=== PATIENT | female | born 1960 | race Caucasian/White ===

== ENCOUNTER 2018-03-13 13:33 | Emergency (ER) | payer SELFPAY ==
[~2018-03-13] VITALS: Ht 162.6 cm; Wt 100.0 kg
[2018-03-13] MEDS ORDERED: MOTRIN400 MG PO (14:33)
[2018-03-13] MEDS ORDERED: ASPERCREME LIDOCA41 TOP (14:33)
[2018-03-13 15:45] LABS: HEMATOCRIT 44.1 % (37.0-47.0); HEMOGLOBIN 14.5 g/dl (12.0-16.0); IMMATURE GRANULOCYTES 0.3 % (0.0-1.0); MEAN CELL VOLUME 93.2 fL CALC (80.0-100.0); MEAN CORPUSCULAR HGB 30.7 pG CALC (26.0-32.0); MEAN CORPUSCULAR HGB CONC 32.9 g/L CALC (32.0-36.0); NEUT# 6.27 thou/uL (2.00-7.15); RED BLOOD COUNT 4.73 mill/uL (4.20-5.60); RED CELL DISTRI WIDTH 13.8 % (11.5-15.5)
[2018-03-13 15:52] LABS: ANION GAP 16 (6-22 (CALC)); BUN 16 mg/dL (7-17); BUN/CREATININE RATIO 32 (12-20 (CALC)); CARBON DIOXIDE 25 mmol/l (22-30); CHLORIDE 106 mmol/l (95-108); CREATININE 0.5 mg/dL (0.5-1.0); GFR > 60 ML/MIN (>=60 (CALC)); GFR FOR AFR.AMER. > 60 ML/MIN (>=60 (CALC)); POTASSIUM 4.1 mmol/l (3.5-5.1); SODIUM 143 mmol/l (137-146)
[2018-03-13] MEDS ORDERED: ZESTRIL5 M1 PO (17:18)
[2018-03-13 17:32] VITALS: BP 151/70
== END 2018-03-13 17:32 | disposition home or self-care (01) | DRG 563 ==
LOC: ED 13:33
PROVIDERS: Family Medicine
DX: S86.912A Strain of unspecified muscle(s) and tendon(s) at lower leg level, left leg, initial encounter (principal); I10 Essential (primary) hypertension; X58.XXXA Exposure to other specified factors, initial encounter
CPT/HCPCS: L1830

== ENCOUNTER 2024-11-27 09:21 | Emergency (ER) | payer MEDICARE ==
[~2024-11-27] VITALS: Ht 162.6 cm; Wt 154.5 kg
[2024-11-27] VITALS (20 sets, daily range): BP systolic 160–245; BP diastolic 75–94
[~2024-11-27 09:21] MED LIST: ASPERCREME LIDOCA41 TOP; MOTRIN400 MG PO; ZESTRIL5 M1 PO
[2024-11-27 10:40] LABS: BASO% 0.2 % (0-3); EOS% 0.1 % (0-8); HEMOGLOBIN 16.2 g/dl (12.0-16.0); IMMATURE GRANULOCYTES 0.2 % (0.0-5.0); LYMPH% 13.1 % (15-41); MEAN CELL VOLUME 88.5 fL CALC (80.0-100.0); MEAN CORPUSCULAR HGB 28.6 pG CALC (26.0-32.0); MEAN CORPUSCULAR HGB CONC 32.3 g/dL CAL (32.0-36.0); MONO% 4.3 % (2-13); NEUT# 10.45 thou/uL (2.00-7.15); NEUT% 82.1 % (42-76); RED BLOOD COUNT 5.66 mill/uL (4.20-5.60); RED CELL DISTRI WIDTH 14.2 % (11.5-15.5)
[2024-11-27 10:48] LABS: HEMATOCRIT 50.1 % (37.0-47.0)
[2024-11-27] MEDS ORDERED: SODIUM CHLORIDE 0.9% 1,000 ML IV ONE (10:50)
[2024-11-27] MEDS ORDERED: METOCLOPRAMIDE HCL 10 MG/2 ML SDV IV ONE (10:50)
[2024-11-27] MEDS ORDERED: KETOROLAC TROMETHAMINE 30 MG/ML SDV IV ONE (10:50)
[2024-11-27 10:53] LABS: ALBUMIN 4.5 g/dL (3.2-5.0); BILIRUBIN, TOTAL 0.7 mg/dL (0.02-1.3); CREATININE 0.5 mg/dL (0.5-1.0); POTASSIUM 3.7 mmol/l (3.5-5.1); TOTAL PROTEIN 8.1 g/dL (6.3-8.2)
[2024-11-27] MEDS ORDERED: ENALAPRILAT 1.25 MG/ML 1ML IV ONE (11:15)
[2024-11-27] MEDS ORDERED: cloNIDine HCL 0.1 MG/TAB PO ONE (12:30)
[2024-11-27] MEDS ORDERED: TYLENOL500 MG PO (14:05)
[2024-11-27] MEDS ORDERED: REGLAN10 MG PO (14:05)
[2024-11-27] MEDS ORDERED: LISINOP/HCTZ1 TA2 PO (14:05)
[2024-12-01] MEDS ORDERED: LISINOP/HCTZ1 TA2 PO (11:33)
[2024-12-01] MEDS ORDERED: TYLENOL500 MG PO (11:33)
[2024-12-01] MEDS ORDERED: REGLAN10 MG PO (11:33)
== END 2024-11-27 14:22 | disposition home or self-care (01) ==
LOC: ED 09:21
PROVIDERS: Emergency Medicine
DX: R53.81 Other malaise (principal); R05.9 Cough, unspecified; R50.9 Fever, unspecified; R52 Pain, unspecified; T50.B95A Adverse effect of other viral vaccines, initial encounter; I10 Essential (primary) hypertension; Z72.0 Tobacco use; Z20.822 Contact with and (suspected) exposure to COVID-19
CPT/HCPCS: J2765